=== PATIENT | female | born 1980 | race Caucasian/White ===

== ENCOUNTER 2020-09-15 00:35 | Emergency (ER) | payer MEDICAID, SELFPAY ==
[2020-09-15 00:45] VITALS: PULSE 100; RESP 20; O2SAT 100
[2020-09-15 00:47] VITALS: PULSE 100; RESP 24; O2SAT 99; BMI 39.2
[2020-09-15 01:00] VITALS: PULSE 107; RESP 20; O2SAT 100
--- NOTE | 2020-09-15 01:00 | PC.NURSE ---
PER EMS PT RECEIVED 5MG IM HALDOL MICA WASHER GLUER
[2020-09-15 01:15] VITALS: PULSE 110; RESP 24; O2SAT 97
--- NOTE | 2020-09-15 01:22 | ED.OVERDOSE ---
HPI - Overdose General Chief Complaint: ETOH/Substance Use Stated Complaint: Crisis Time Seen by Provider: 09/15/20 01:21 Source: EMS Mode of arrival: EMS History of Present Illness HPI Narrative: 40-year-old female was brought in by EMS as well as please department in 4 point restraints after patient took 500 mg of edibles. Related Data Allergies Allergy/AdvReac Type Severity Reaction Status Date / Time Unable to Assess Allergy Verified 09/15/20 00:47 Review of Systems Review of Systems: Pertinent positives and negatives as stated in HPI 10 point review systems is otherwise negative. PMFSH Past Medical History Source: nursing notes reviewed Social History Social History Advance Directives: No Advance Directives Information Provided: No Patient : No (UNKNOWN) Physical Exam Vital Signs: Vital Signs: Last Vital Signs Pulse 97 09/15/20 01:45 Resp 18 09/15/20 01:45 Pulse Ox 99 09/15/20 01:45 Body Mass Index 39.2 VITAL SIGNS: Reviewed. GENERAL: Well developed, well nourished, in no acute distress. HEAD: Normocephalic/atraumatic EYES: PERRLA, EOMI EARS: Ext canals without abnormality OROPHARYNX: no oral lesions noted, posterior pharynx clear NECK: Supple, no adenopathy LUNGS: Normal breath sounds. No adventitious sounds or accessory muscle use. SpO2<99> CARDIOVASCULAR: Regular rate and rhythm without noted murmurs ABDOMEN: Soft, non-tender, non-distended with bowel sounds. SKIN: Inspection of the skin reveals no rashes NEUROLOGIC: Alert and oriented x 3. Strength and sensation to light touch were grossly intact x 4. Course Course Course Narrative: 40-year-old female with history and clinical presentation consistent with overdose on edibles to associated altered mental status secondary to this. Patient required 4 point restraints and on 1 hour [id number]) has had significant improvement in mentation and ability to remove the restraints. Reevaluation(s) Reevaluation #1: Patient placed in physician observation because the patient needed more time to become sober. At the time observation was started the patient's vital signs were stable, patient is alert and oriented, neuro: Nonfocal, CV RRR, lungs clear Time: 02:42 Reevaluation #2: Physician observation ended. Patient will be discharged home in stable condition. NAD, lungs clear, CV RRR, abdominal nontender, neuro intact. Time: 05:53 MDM - Overdose Lab Data Labs: Lab Results 09/15/20 Range/Units 02:52 Urine Opiates Screen Not Detected (Not Detect) Ur Barbiturates Screen Not Detected (Not Detect) Ur Phencyclidine Scrn Not Detected (Not Detect) Ur Amphetamines Screen Not Detected (Not Detect) U Benzodiazepines Scrn Not Detected (Not Detect) Urine Cocaine Screen Not Detected (Not Detect) U Marijuana (THC) Screen POSITIVE H (Not Detect) Discharge Plan Discharge Clinical Impression: Overdose Patient Disposition: Home, Self-Care Instructions: Adult Overdose (ED) Additional Instructions: Return to the ER for acute worsening of your symptoms. Please follow-up with your primary care provider the next 2-3 days for re-evaluation. Referrals: Lisa Awad [Emergency Nurse] - 2 days
[2020-09-15 01:30] VITALS: PULSE 100; RESP 20; O2SAT 99
[2020-09-15 01:45] VITALS: PULSE 97; RESP 18; O2SAT 99
[2020-09-15 03:12] LABS: Amphetamine Screen Urine Not Detected (Not Detect); Barbiturates, Urine Not Detected (Not Detect); Benzodiazepines Screen Urine Not Detected (Not Detect); Cannabinoid Screen Urine POSITIVE (Not Detect); Cocaine Screen Urine Not Detected (Not Detect); Opiate Screen Urine Not Detected (Not Detect); Phencyclidine Screen Urine Not Detected (Not Detect)
== END 2020-09-15 06:43 | disposition home or self-care (01) ==
LOC: HO.ED 03:34
PROVIDERS: Emergency Provider Student in an Organized Health Care Education/Training Program
DX: T40.7X1A Poisoning by cannabis (derivatives), accidental (unintentional), initial encounter (principal); R41.82 Altered mental status, unspecified; Y92.9 Unspecified place or not applicable
CPT/HCPCS: 80307; 99283; 99285

== ENCOUNTER 2021-11-27 15:44 | Inpatient (IN) | payer OTHER, SELFPAY ==
[2021-11-27 16:05] VITALS: BP 146/84; PULSE 82; RESP 16; TEMP 36.6; O2SAT 99
--- NOTE | 2021-11-27 17:53 | PC.NURSE ---
Pt was admitted to M3 from [facility] ED @1385. Signed CV. Pt?s intake reports pt exhibited manic behavior at sister?s house where she tore her sister?s house apart looking for ?items of the rainbow to give to her friends.? During assessment, pt was A&O, INAD, pleasant and cooperative, using humor, forward thinking and hopeful, tangential but easily redirectable. Pt reports recent addition of sertraline to medication regimen and she associates that with her decompensation.? ALLERGIES: Penicillin allergy, rash and throat swelling reported; environmental allergies.? Chappell No. COVID: Negative. UTOX: +THC per [id number]. Mood: Pleasant; affect congruent to context. Insight appears good. Judgment good. Substance use: Regular marijuana use. ETOH 1-2 x weekly. MedHx: Wears glasses, on person; hypertension; hypercholesterolemia; cough when smoking MJ; legs hurt when walking; knees hurt from weight. Elevated AST, ALT, TSH, albumin; low RBC, Hgb, Hct. PsycheHx: Unspecified Bipolar and related disorder. Manic episode.? VS recorded at admission: 97.8, 82, 16, 146/84, 99%. Pt?s goal for admission is stabilization on medication. Feels sertraline was the wrong medication for her.
[2021-11-27] MEDS: OLANZapine ODT 10 MG TAB.RAPDIS TRANSLINGU (21:20)
[2021-11-27] MEDS: Ibuprofen 400 MG TABLET PO (21:20)
[2021-11-27] MEDS: Melatonin 3 MG TABLET 6 MG PO (21:51)
[2021-11-28] MEDS: Levothyroxine Sodium 75 MCG TABLET PO (08:49)
[2021-11-28 09:00] VITALS: BP 136/100; PULSE 79; RESP 16; TEMP 36.6; O2SAT 100
[2021-11-28 09:01] LABS: Estimated Average Glucose 94 mg/dL; Hemoglobin A1C 92.7504 umol/L; Hemoglobin A1c % 4.9 %
[2021-11-28 09:43] LABS: Alanine Aminotransferase 45 U/L (0-31); Alkaline Phosphatase 51 U/L (39-117); Anion Gap 16 (12-20); Aspartate Amino Transferase 72 U/L (5-31); Bilirubin Direct 0.2 mg/dL (0.0-0.5); Bilirubin Total 0.2 mg/dL (0.0-1.0); Blood Urea Nitrogen 11 mg/dL (9-16); Calcium 9.1 mg/dL (8.4-10.2); Carbon Dioxide 23 mmol/L (22-29); Chloride 104 mmol/L (96-108); Cholesterol 102 mg/dL; Estimated Glomerular Filt Rate > 60; Glucose Fasting 80 mg/dL (60-99); HDL Cholesterol 32 mg/dL; LDL Cholesterol Calculated 61 mg/dl; Potassium 4.4 mmol/L (3.3-5.1); Sodium 139 mmol/L (135-145); Total Protein 6.4 g/dL (6.5-8.0); Triglycerides 47 mg/dL
[2021-11-28 10:10] LABS: Folate 17.7 ng/mL (> or = 4.0); Vitamin B12 991 pg/mL (200-900)
--- NOTE | 2021-11-28 11:35 | P.HPPS_ITS ---
HPI Date of Service: 11/28/21 Chief Complaint: lacie HPI Narrative: pt's partner of 20 years called EMS after being called by her to bring her contacts to her sister's apartment and finding her there having caused a large mess at the apartment and making non-sensical, bizarre, disorganized statements. EMS brought pt to [facility] ED for evaluation. multiple staff there as well as crisis glaze mixer found pt to be tangential and disorganized, with pressured speech. pt denied any recent psychosocial stressors in interview with crisis, but she did report not having slept for three nights straight leading up to the presentation. she expressed concern that a recent medication change had something to do with her presentation (RN at [facility] identified the med as sertraline). on interview with MD on psych unit, pt presents with an essentially normal MSE. she states she slept well the past two nights and is feeling much better. discusses her feeling the sertraline she started in the first or second week of october must be responsible for recent events. sister with bipolar disorder. no h/o lacie until august,, after her father passed. Graves' Dz with hypothyroidism (states she has been taking synthroid the past couple of months and her TSH was over 100 before she restarted synthroid). smokes cannabis daily for the past 2-3 years, until 4-5 days ago. drinks a couple drinks per week. c/o winter depression, interested in anti-depressant. agrees to trial of wellbutrin. R/B discussed, including Sz, agitation, insomnia, anxiety. pt agrees to continue with other meds for now, including olanzapine to ensure sleep. no other requests or complaints. Past Psychiatric History: h/o one prior psych hosp, [facility], august of 2020. th is was shortly after the loss of her father and pt exhibited Sx similar to the present, of lacie. h/o outpt therapy. no h/o SA, SIB. gets meds from PCP currently. Medical Evaluation Reviewed: Yes [facility] Narrative: Graves' Disease with Hypothyroidism Family History: sister - bipolar disorder, per pt report Social History: born [place], [place], but raised mostly in [place] with intact bio family. both parents , father August,, which precipitated pt's first manic episode. lives with her boyfriend of over 20 yrs. Substance History: cannabis daily alcohol 2 drinks per week denies other Trauma History: witness to verbal altercations between her parents. Diagnostics Vital Signs (24Hr): Vital Signs - 24 hr 11/27/21 16:05 Temperature 97.8 F Pulse Rate 82 Respiratory Rate 16 Blood Pressure 146/84 H Pulse Oximetry 99 Oxygen Delivery Method Room Air Labs Results: 11/28/21 08:17 Labs: Laboratory Results - last 48 hr 11/28/21 11/28/21 11/28/21 08:17 08:17 08:17 Sodium 139 Potassium 4.4 Chloride 104 Carbon Dioxide 23 Anion Gap 16 BUN 11 Creatinine 0.72 Estim Creat Clear Calc TNP Estimated GFR > 60 Fasting Glucose 80 Estimat Average Glucose 94 Hemoglobin A1c % 4.9 Calcium 9.1 Total Bilirubin 0.2 Direct Bilirubin 0.2 AST 72 H ALT 45 H Alkaline Phosphatase 51 Total Protein 6.4 L Albumin 4.0 Triglycerides 47 Cholesterol 102 LDL Cholesterol, Calc 61 HDL Cholesterol 32 Vitamin B12 991 H Folate 17.7 Meds/Allergies Allergies Allergies Allergy/AdvReac Type Severity Reaction Status Date / Time Penicillins Allergy Severe Rash Verified 11/27/21 17:36 Mental Status Exam Mental Status Exam Narrative: calm, cooperative. no PMA/PMR. normal eye contact. speech incr in rate, amount. nml loudness. decr latency. thoughts linear and logical. affect full range, flexible, normo-intense, non-labile. mood still good. denies SI/HI/AVH. Assessment & Plan Assessment & Plan (1) Brief psychotic disorder: Status: Acute Code(s): F23 - Brief psychotic disorder Plan olanzapine at HS to ensure good sleep, temporarily. wellbutrin for depression, which pt describes as the burden of her morbidity. Patient educated on: diagnosis and medication risk/benefits Reason for continued inpatient stay Substantial Risk for: inability to function and rapid decompensation
[2021-11-28] MEDS: buPROPion HCl XL 150 MG TAB.ER.24H PO (14:26)
[2021-11-28] MEDS: Magnesium Hydrox/Alum Hydrox 30 ML ORAL.SUSP PO (18:20)
[2021-11-28 20:30] VITALS: BP 172/81; PULSE 85; TEMP 36.7; O2SAT 99
[2021-11-28] MEDS: OLANZapine ODT 10 MG TAB.RAPDIS TRANSLINGU (20:58)
[2021-11-28] MEDS: Melatonin 3 MG TABLET 6 MG PO (21:02)
[2021-11-29 06:00] VITALS: BP 143/84; PULSE 75; RESP 18; TEMP 36.6; O2SAT 98
[2021-11-29] MEDS: buPROPion HCl XL 150 MG TAB.ER.24H PO (08:16)
[2021-11-29] MEDS: Levothyroxine Sodium 75 MCG TABLET PO (08:16)
--- NOTE | 2021-11-29 12:07 | HO.PM.IMCN ---
History of Present Illness Data of Consult Service Date: 11/29/21 Requesting physician: Stanislaw Merrill Primary Care Provider: TANVIR Whitman Reason for consult: medical history and physical 41-year-old female patient admitted to Adult psych facility due to brief psychotic disorder, at present patient answering questions appropriately she admits to be feeling better sleeping well, wanted her right forearm to be checked since had a cat scratch several days ago denies fever chills, no pain, patient denies symptoms of headache, no nausea no vomiting, no abdominal pain no diarrhea no other acute symptoms of pain. Review of Systems Review of Systems: General no headache no dizziness, no fever chills. CVS no chest pain, no palpitation. Respiratory no cough, no sob Gastrointestinal no nausea, no vomiting, no abdominal pain Yes all other systems are reviewed and are negative PMFSH Pertinent family history: Both parents are diseased father had type 1 diabetes mellitus and had premature coronary artery disease status post quadruple bypass, mother due to trauma and had subdural hemorrhage, sister has bipolar disorder Social History Household Members: Significant Other Housing: Apartment Do you presently have visiting nurse or other home services: No Patient Tobacco Use Status: Never used Tobacco Use of substances other than those prescribed or required for medical reasons: Yes Substance Use Type: Marijuana Substance Use Frequency: Daily Last Used Substance: Days (ago) Currently Displaying Signs/Symptoms of Drug Intoxication Withdrawal: No Other Past Substance Use Problem:: Overdoses on mushrooms last summer. Any prior treatment program specific to substance use: No Have you been hit, kicked, punched, or otherwise hurt by someone within the past year? If so, by whom?: No ( Not without asking ) Do you feel safe in your current relationship?: Yes Is there a partner from a previous relationship who is making you feel unsafe now?: Yes ( My ex girlfriend sometimes, but that's it. ) Are you made to feel afraid or neglected: No ( Usually just myself. Social anxieties. ) Spiritual Healthcare Practices: Yoga. Advance Directives: Yes (Boyfriend.) Advance Directives Information Provided: No Do you have thoughts of harming others: None Do you have a plan to hurt others: No Plan Recently lost weight without trying: No Eating poorly because of decreased appetite: No Nutrition Risks: No Nutritional Risk Patient : No (Currently menstruating) : No Poor oral hygiene: No service: No Sexual orientation: Straight/Heterosexual Meds Allergies Allergy/AdvReac Type Severity Reaction Status Date / Time Penicillins Allergy Severe Rash Verified 11/27/21 17:36 Active Medications: Current Medications Acetaminophen (Acetaminophen 325 Mg Tablet) 650 mg PO Q6H PRN PRN Reason: Headache/Pain Mild Scale (1-3) Al Hydroxide/Mg Hydroxide (Magnesium Hydrox/Alum Hydrox 30 Ml Oral.Susp) 30 ml PO Q6H PRN PRN Reason: Heartburn/Nausea Last Admin: 11/28/21 18:20 Dose: 30 ml Bupropion HCl (Bupropion Hcl Xl 150 Mg Tab.Er.24h) 150 mg PO DAILY LOUIE Last Admin: 11/29/21 08:16 Dose: 150 mg Hydroxyzine HCl (Hydroxyzine Hcl 25 Mg Tablet) 25 mg PO Q6H PRN PRN Reason: Anxiety Ibuprofen (Ibuprofen 400 Mg Tablet) 400 mg PO Q6H PRN PRN Reason: Pain, Mild (Pain Scale 1-3) Last Admin: 11/27/21 21:20 Dose: 400 mg Levothyroxine Sodium (Levothyroxine Sodium 100 Mcg Tablet) 100 mcg PO DAILY@0600 LOUIE Lorazepam (Lorazepam 1 Mg Tablet) 2 mg PO Q4H PRN PRN Reason: agitation Magnesium Hydroxide (Milk Of Magnesia 30 Ml Oral.Susp) 30 ml PO DAILY PRN PRN Reason: Constipation Melatonin (Melatonin 3 Mg Tablet) 6 mg PO BEDTIME PRN PRN Reason: Insomnia Last Admin: 11/28/21 21:02 Dose: 6 mg Nicotine Polacrilex (Nicotine Polacrilex 2 Mg Gum) 4 mg BUCCAL Q2H PRN PRN Reason: Nicotine Cravings Olanzapine (Olanzapine 5 Mg Tablet) 5 mg PO BEDTIME LOUIE Olanzapine (Olanzapine 5 Mg Tablet) 5 mg PO Q4H PRN PRN Reason: agitation/insomnia Trazodone HCl (Trazodone Hcl 50 Mg Tablet) 50 mg PO BEDTIME PRN PRN Reason: Insomnia Physical Exam Vital Signs and Narrative: Vital Signs: Last Vital Signs Temp 97.8 F 11/29/21 06:00 Pulse 75 11/29/21 06:00 Resp 18 11/29/21 06:00 BP 143/84 H 11/29/21 06:00 Pulse Ox 98 11/29/21 06:00 O2 Del Method 11/29/21 06:00 Const: Other: General awake alert x3, no acute distress. oral mucosa moist Neck supple, no mass CVS regular rate rhythm, Respiratory lungs clear to auscultation, no respiratory distress, no wheeze, no rhonchi. Gastrointestinal abdomen soft, nontender, bowel sounds audible, no guarding , no rigidity. Extremities no edema. Neuro nonfocal , no tremors Skin no rash Results Labs CBC and Chem 7: 11/28/21 08:17 Assessment and Plan (1) Brief psychotic disorder: Status: Acute (2) Hypothyroidism: Status: Acute Plan 41-year-old female patient admitted to psych unit due to psychotic disorder, with lack of sleep hypothyroidism continue Synthroid, recommend to follow TSH in 6 weeks due to dosage change Elevated LFTs, no prior LFTs available, patient denies abdominal pain nausea vomiting, drinks alcohol socially, follow LFTs as outpatient Psychosis treatment as per Psychiatry thank you for allowing us to participate in the care of this patient will sign off call us with any questions.
--- NOTE | 2021-11-29 13:55 | HO.PSYCHPN ---
Subjective Subjective Date of Service: 11/29/21 Reason For Visit: lacie Interim History: calm, cooperative, friendly. reports she slept well last night. agreeable to increase wellbutrin to 300 on thursday and to decrease olanzapine to 5 mg as of tonight. will also have PRN available. per staff, 3-day submitted. pleasant. sad due to problems with sister. eating and sleeping well. attending groups. no SI/HI/AVH. boyfriend visited. Mental Status Exam Mental Status Exam Narrative: calm, cooperative. no PMA/PMR. normal eye contact. speech incr in rate, amount. nml loudness. decr latency. thoughts linear and logical. affect full range, flexible, normo-intense, non-labile. mood pretty calm. denies SI/HI/AVH. Diagnostics Vital Signs (24Hr): Vital Signs - 24 hr 11/28/21 20:30 11/29/21 06:00 Temperature 98.1 F 97.8 F Pulse Rate 85 75 Respiratory Rate 18 Blood Pressure 172/81 H 143/84 H Pulse Oximetry 99 98 Oxygen Delivery Method Room Air Room Air Labs Results: 11/28/21 08:17 Labs: Laboratory Results - last 48 hr 11/28/21 11/28/21 11/28/21 08:17 08:17 08:17 Sodium 139 Potassium 4.4 Chloride 104 Carbon Dioxide 23 Anion Gap 16 BUN 11 Creatinine 0.72 Estim Creat Clear Calc TNP Estimated GFR > 60 Fasting Glucose 80 Estimat Average Glucose 94 Hemoglobin A1c % 4.9 Calcium 9.1 Total Bilirubin 0.2 Direct Bilirubin 0.2 AST 72 H ALT 45 H Alkaline Phosphatase 51 Total Protein 6.4 L Albumin 4.0 Triglycerides 47 Cholesterol 102 LDL Cholesterol, Calc 61 HDL Cholesterol 32 Vitamin B12 991 H Folate 17.7 Medications Medications Current Medications Acetaminophen (Acetaminophen 325 Mg Tablet) 650 mg PO Q6H PRN PRN Reason: Headache/Pain Mild Scale (1-3) Al Hydroxide/Mg Hydroxide (Magnesium Hydrox/Alum Hydrox 30 Ml Oral.Susp) 30 ml PO Q6H PRN PRN Reason: Heartburn/Nausea Last Admin: 11/28/21 18:20 Dose: 30 ml Bupropion HCl (Bupropion Hcl Xl 150 Mg Tab.Er.24h) 150 mg PO DAILY LOUIE Last Admin: 11/29/21 08:16 Dose: 150 mg Hydroxyzine HCl (Hydroxyzine Hcl 25 Mg Tablet) 25 mg PO Q6H PRN PRN Reason: Anxiety Ibuprofen (Ibuprofen 400 Mg Tablet) 400 mg PO Q6H PRN PRN Reason: Pain, Mild (Pain Scale 1-3) Last Admin: 11/27/21 21:20 Dose: 400 mg Levothyroxine Sodium (Levothyroxine Sodium 100 Mcg Tablet) 100 mcg PO DAILY@0600 LOUIE Lorazepam (Lorazepam 1 Mg Tablet) 2 mg PO Q4H PRN PRN Reason: agitation Magnesium Hydroxide (Milk Of Magnesia 30 Ml Oral.Susp) 30 ml PO DAILY PRN PRN Reason: Constipation Melatonin (Melatonin 3 Mg Tablet) 6 mg PO BEDTIME PRN PRN Reason: Insomnia Last Admin: 11/28/21 21:02 Dose: 6 mg Nicotine Polacrilex (Nicotine Polacrilex 2 Mg Gum) 4 mg BUCCAL Q2H PRN PRN Reason: Nicotine Cravings Olanzapine (Olanzapine 5 Mg Tablet) 5 mg PO BEDTIME LOUIE Olanzapine (Olanzapine 5 Mg Tablet) 5 mg PO Q4H PRN PRN Reason: agitation/insomnia Trazodone HCl (Trazodone Hcl 50 Mg Tablet) 50 mg PO BEDTIME PRN PRN Reason: Insomnia Allergies Allergies Allergy/AdvReac Type Severity Reaction Status Date / Time Penicillins Allergy Severe Rash Verified 11/27/21 17:36 Assessment & Plan Assessment & Plan (1) Brief psychotic disorder: Status: Acute Code(s): F23 - Brief psychotic disorder (2) Hypothyroidism: Status: Acute Code(s): E03.9 - Hypothyroidism, unspecified Plan 11/28: olanzapine 10 at HS to ensure good sleep, temporarily. wellbutrin 150 for depression, which pt describes as the burden of her morbidity. 11/29: mood continues well. calm and cooperative. decrease olanzapine at HS. wellbutrin 150 thursday, then increase to 300 thursday. planning for discharge thursday upon maturation of 3-day notice. I spent ___25___ minutes with the patient and/or on the patient floor today, greater than?50% of which was spent counseling/coordinating care. Reason for contiued inpatient stay Substantial Risk for: inability to function and rapid decompensation
[2021-11-29 20:15] VITALS: BP 134/86; PULSE 77; RESP 16; TEMP 36.7; O2SAT 99
[2021-11-29] MEDS: OLANZapine 5 MG TABLET PO (20:23)
[2021-11-29] MEDS: traZODone HCL 50 MG TABLET PO (20:23)
[2021-11-29] MEDS: Melatonin 3 MG TABLET 6 MG PO (20:23)
[2021-11-30] MEDS: hydrOXYzine HCL 25 MG TABLET PO (01:08)
[2021-11-30] MEDS: traZODone HCL 50 MG TABLET PO ×2 (01:08→21:31)
[2021-11-30 06:00] VITALS: BP 170/98; PULSE 87; RESP 16; TEMP 36.6; O2SAT 99
[2021-11-30] MEDS: buPROPion HCl XL 150 MG TAB.ER.24H PO (09:18)
[2021-11-30] MEDS: Levothyroxine Sodium 100 MCG TABLET PO (09:18)
--- NOTE | 2021-11-30 12:10 | HO.PSYCHPN ---
Subjective Subjective Date of Service: 11/30/21 Reason For Visit: lacie Subjective Notes: Conditional Voluntary Interim History: the nursing staff reported the patient has been fully compliant with treatment. If she reported that since we change Zoloft to Wellbutrin she is feeling much better. On interview the patient stated will be treat is helping her no side effects no insomnia. Her mood is more stable. Mental Status Exam Mental Status Exam Patient Appearance: Well Grooomed Patient Orientation: Person and Situation Level of Consciousness: Awake Patient Behavior: Cooperative Mood Description: Constricted Affect Description: Calm Patient Cognition Impaired: No Ability to Follow Directions: Good Speech Pattern: Clear Hallucinations: None Delusions: Not Present Thought Content: positive for Circumstantial Judgement: Fair Diagnostics Vital Signs (24Hr): Vital Signs - 24 hr 11/29/21 20:15 11/30/21 06:00 Temperature 98.0 F 97.8 F Pulse Rate 77 87 Respiratory Rate 16 16 Blood Pressure 134/86 170/98 H Pulse Oximetry 99 99 Oxygen Delivery Method Room Air Room Air Labs Results: 11/28/21 08:17 Medications Medications Current Medications Acetaminophen (Acetaminophen 325 Mg Tablet) 650 mg PO Q6H PRN PRN Reason: Headache/Pain Mild Scale (1-3) Al Hydroxide/Mg Hydroxide (Magnesium Hydrox/Alum Hydrox 30 Ml Oral.Susp) 30 ml PO Q6H PRN PRN Reason: Heartburn/Nausea Last Admin: 11/28/21 18:20 Dose: 30 ml Bupropion HCl (Bupropion Hcl Xl 300 Mg Tab.Er.24h) 300 mg PO DAILY [facility] Hydroxyzine HCl (Hydroxyzine Hcl 25 Mg Tablet) 25 mg PO Q6H PRN PRN Reason: Anxiety Last Admin: 11/30/21 01:08 Dose: 25 mg Ibuprofen (Ibuprofen 400 Mg Tablet) 400 mg PO Q6H PRN PRN Reason: Pain, Mild (Pain Scale 1-3) Last Admin: 11/27/21 21:20 Dose: 400 mg Levothyroxine Sodium (Levothyroxine Sodium 100 Mcg Tablet) 100 mcg PO DAILY@0600 LOUIE Last Admin: 11/30/21 09:18 Dose: 100 mcg Lorazepam (Lorazepam 1 Mg Tablet) 2 mg PO Q4H PRN PRN Reason: agitation Magnesium Hydroxide (Milk Of Magnesia 30 Ml Oral.Susp) 30 ml PO DAILY PRN PRN Reason: Constipation Melatonin (Melatonin 3 Mg Tablet) 6 mg PO BEDTIME PRN PRN Reason: Insomnia Last Admin: 11/29/21 20:23 Dose: 6 mg Nicotine Polacrilex (Nicotine Polacrilex 2 Mg Gum) 4 mg BUCCAL Q2H PRN PRN Reason: Nicotine Cravings Olanzapine (Olanzapine 5 Mg Tablet) 5 mg PO BEDTIME LOUIE Last Admin: 11/29/21 20:23 Dose: 5 mg Olanzapine (Olanzapine 5 Mg Tablet) 5 mg PO Q4H PRN PRN Reason: agitation/insomnia Trazodone HCl (Trazodone Hcl 50 Mg Tablet) 50 mg PO BEDTIME PRN PRN Reason: Insomnia Last Admin: 11/30/21 01:08 Dose: 50 mg Allergies Allergies Allergy/AdvReac Type Severity Reaction Status Date / Time Penicillins Allergy Severe Rash Verified 11/27/21 17:36 Assessment & Plan Assessment & Plan (1) Brief psychotic disorder: Status: Acute Code(s): F23 - Brief psychotic disorder (2) Hypothyroidism: Status: Acute Code(s): E03.9 - Hypothyroidism, unspecified Plan 11/28: olanzapine 10 at HS to ensure good sleep, temporarily. wellbutrin 150 for depression, which pt describes as the burden of her morbidity. 11/29: mood continues well. calm and cooperative. decrease olanzapine at HS. wellbutrin 150 thursday, then increase to 300 thursday. planning for discharge thursday upon maturation of 3-day notice. I spent __20____ minutes with the patient and/or on the patient floor today, greater than?50% of which was spent counseling/coordinating care. Reason for contiued inpatient stay Substantial Risk for: inability to function, rapid decompensation and med/psych decompensation
[2021-11-30 21:30] VITALS: BP 157/90; PULSE 80; RESP 18; TEMP 36.6; O2SAT 97
[2021-11-30] MEDS: Melatonin 3 MG TABLET 6 MG PO (21:31)
[2021-11-30] MEDS: OLANZapine 5 MG TABLET PO (21:31)
[2021-12-01] MEDS: Magnesium Hydrox/Alum Hydrox 30 ML ORAL.SUSP PO (00:46)
[2021-12-01 09:10] VITALS: BP 128/89; PULSE 78; RESP 16; TEMP 36.6; O2SAT 100
[2021-12-01] MEDS: Levothyroxine Sodium 100 MCG TABLET PO (09:13)
[2021-12-01] MEDS: buPROPion HCl XL 300 MG TAB.ER.24H PO (09:13)
--- NOTE | 2021-12-01 12:13 | HO.PSYCHPN ---
Subjective Subjective Date of Service: 12/01/21 Reason For Visit: lacie Subjective Notes: Conditional Voluntary Interim History: The nursing staff reported the patient has been doing well no evidence of lacie, she slept all night. On interview the patient stated that she is doing very good, her needs are med, she will get a visitor at noon and she is happy. No side effects with current medications Mental Status Exam Mental Status Exam Patient Appearance: Well Grooomed Patient Orientation: Person and Situation Level of Consciousness: Awake Patient Behavior: Cooperative Mood Description: Constricted Affect Description: Calm Patient Cognition Impaired: No Ability to Follow Directions: Good Speech Pattern: Clear Hallucinations: None Delusions: Not Present Thought Process: Linear Thought Content: positive for Intact Judgement: Fair Diagnostics Vital Signs (24Hr): Vital Signs - 24 hr 11/30/21 21:30 12/01/21 09:10 Temperature 97.9 F 97.8 F Pulse Rate 80 78 Respiratory Rate 18 16 Blood Pressure 157/90 H 128/89 Pulse Oximetry 97 100 Oxygen Delivery Method Room Air Room Air Labs Results: 11/28/21 08:17 Medications Medications Current Medications Acetaminophen (Acetaminophen 325 Mg Tablet) 650 mg PO Q6H PRN PRN Reason: Headache/Pain Mild Scale (1-3) Al Hydroxide/Mg Hydroxide (Magnesium Hydrox/Alum Hydrox 30 Ml Oral.Susp) 30 ml PO Q6H PRN PRN Reason: Heartburn/Nausea Last Admin: 12/01/21 00:46 Dose: 30 ml Bupropion HCl (Bupropion Hcl Xl 300 Mg Tab.Er.24h) 300 mg PO DAILY [facility] Last Admin: 12/01/21 09:13 Dose: 300 mg Hydroxyzine HCl (Hydroxyzine Hcl 25 Mg Tablet) 25 mg PO Q6H PRN PRN Reason: Anxiety Last Admin: 11/30/21 01:08 Dose: 25 mg Ibuprofen (Ibuprofen 400 Mg Tablet) 400 mg PO Q6H PRN PRN Reason: Pain, Mild (Pain Scale 1-3) Last Admin: 11/27/21 21:20 Dose: 400 mg Levothyroxine Sodium (Levothyroxine Sodium 100 Mcg Tablet) 100 mcg PO DAILY@0600 [facility] Last Admin: 12/01/21 09:13 Dose: 100 mcg Lorazepam (Lorazepam 1 Mg Tablet) 2 mg PO Q4H PRN PRN Reason: agitation Magnesium Hydroxide (Milk Of Magnesia 30 Ml Oral.Susp) 30 ml PO DAILY PRN PRN Reason: Constipation Melatonin (Melatonin 3 Mg Tablet) 6 mg PO BEDTIME PRN PRN Reason: Insomnia Last Admin: 11/30/21 21:31 Dose: 6 mg Nicotine Polacrilex (Nicotine Polacrilex 2 Mg Gum) 4 mg BUCCAL Q2H PRN PRN Reason: Nicotine Cravings Olanzapine (Olanzapine 5 Mg Tablet) 5 mg PO BEDTIME LOUIE Last Admin: 11/30/21 21:31 Dose: 5 mg Olanzapine (Olanzapine 5 Mg Tablet) 5 mg PO Q4H PRN PRN Reason: agitation/insomnia Trazodone HCl (Trazodone Hcl 50 Mg Tablet) 50 mg PO BEDTIME PRN PRN Reason: Insomnia Last Admin: 11/30/21 21:31 Dose: 50 mg Allergies Allergies Allergy/AdvReac Type Severity Reaction Status Date / Time Penicillins Allergy Severe Rash Verified 11/27/21 17:36 Assessment & Plan Assessment & Plan (1) Brief psychotic disorder: Status: Acute Code(s): F23 - Brief psychotic disorder (2) Hypothyroidism: Status: Acute Code(s): E03.9 - Hypothyroidism, unspecified Plan 11/28: olanzapine 10 at HS to ensure good sleep, temporarily. wellbutrin 150 for depression, which pt describes as the burden of her morbidity. 11/29: mood continues well. calm and cooperative. decrease olanzapine at HS. wellbutrin 150 thursday, then increase to 300 thursday. planning for discharge thursday upon maturation of 3-day notice. I spent __20____ minutes with the patient and/or on the patient floor today, greater than?50% of which was spent counseling/coordinating care. Reason for contiued inpatient stay Substantial Risk for: inability to function, rapid decompensation and med/psych decompensation
[2021-12-01] MEDS: Ibuprofen 400 MG TABLET PO (17:26)
[2021-12-01 20:46] VITALS: BP 171/109; PULSE 88; RESP 18; TEMP 36.6; O2SAT 98
[2021-12-01] MEDS: traZODone HCL 50 MG TABLET PO (21:17)
[2021-12-01] MEDS: OLANZapine 5 MG TABLET PO (21:17)
[2021-12-01] MEDS: Melatonin 3 MG TABLET 6 MG PO (21:17)
[2021-12-02 08:35] VITALS: BP 158/86; PULSE 92; RESP 17; TEMP 36.4; O2SAT 99
[2021-12-02] MEDS: Levothyroxine Sodium 100 MCG TABLET PO (08:40)
[2021-12-02] MEDS: buPROPion HCl XL 300 MG TAB.ER.24H PO (08:40)
--- NOTE | 2021-12-02 14:49 | P.PNPSI_ITS ---
Subjective Subjective Date of Service: 12/02/21 Reason For Visit: lacie Interim History: calm, cooperative. was hoping for discharge today, when told tomorrow had some tears but got through it quickly. reports she has been sleeping very well on trazodone and zyprexa, agrees to decrease zyprexa to 2.5 mg tonight with plan to make it PRN only after discharge and to rely on trazodone more. aftercare arranged by KERRY mosher as described by her to pt during mtg. per staff, playing cards with select peers. getting fresh air. safe on unit but sad. denies SI/HI/AVH. pleasant, cooperative. visible, social, pleasant eves. discharge tomorrow. Mental Status Exam Mental Status Exam Narrative: calm, cooperative. no PMA/PMR. normal eye contact. speech incr in rate, nml amount, loudness. decr latency. thoughts linear and logical. affect full range, flexible, normo-intense, min-labile (some tearfulness). no SI/HI/AVH expressed. Diagnostics Vital Signs (24Hr): Vital Signs - 24 hr 12/01/21 20:46 12/02/21 08:35 Temperature 97.8 F 97.6 F Pulse Rate 88 92 Respiratory Rate 18 17 Blood Pressure 171/109 H 158/86 H Pulse Oximetry 98 99 Oxygen Delivery Method Room Air Room Air Labs Results: 11/28/21 08:17 Medications Medications Current Medications Acetaminophen (Acetaminophen 325 Mg Tablet) 650 mg PO Q6H PRN PRN Reason: Headache/Pain Mild Scale (1-3) Al Hydroxide/Mg Hydroxide (Magnesium Hydrox/Alum Hydrox 30 Ml Oral.Susp) 30 ml PO Q6H PRN PRN Reason: Heartburn/Nausea Last Admin: 12/01/21 00:46 Dose: 30 ml Bupropion HCl (Bupropion Hcl Xl 300 Mg Tab.Er.24h) 300 mg PO DAILY LOUIE Last Admin: 12/02/21 08:40 Dose: 300 mg Hydroxyzine HCl (Hydroxyzine Hcl 25 Mg Tablet) 25 mg PO Q6H PRN PRN Reason: Anxiety Last Admin: 11/30/21 01:08 Dose: 25 mg Ibuprofen (Ibuprofen 400 Mg Tablet) 400 mg PO Q6H PRN PRN Reason: Pain, Mild (Pain Scale 1-3) Last Admin: 12/01/21 17:26 Dose: 400 mg Levothyroxine Sodium (Levothyroxine Sodium 100 Mcg Tablet) 100 mcg PO DAILY@0600 LOUIE Last Admin: 12/02/21 08:40 Dose: 100 mcg Lorazepam (Lorazepam 1 Mg Tablet) 2 mg PO Q4H PRN PRN Reason: agitation Magnesium Hydroxide (Milk Of Magnesia 30 Ml Oral.Susp) 30 ml PO DAILY PRN PRN Reason: Constipation Melatonin (Melatonin 3 Mg Tablet) 6 mg PO BEDTIME PRN PRN Reason: Insomnia Last Admin: 12/01/21 21:17 Dose: 6 mg Nicotine Polacrilex (Nicotine Polacrilex 2 Mg Gum) 4 mg BUCCAL Q2H PRN PRN Reason: Nicotine Cravings Olanzapine (Olanzapine 5 Mg Tablet) 5 mg PO Q4H PRN PRN Reason: agitation/insomnia Olanzapine (Olanzapine 2.5 Mg Tablet) 2.5 mg PO BEDTIME LOUIE Trazodone HCl (Trazodone Hcl 50 Mg Tablet) 50 mg PO BEDTIME LOUIE Allergies Allergies Allergy/AdvReac Type Severity Reaction Status Date / Time Penicillins Allergy Severe Rash Verified 11/27/21 17:36 Assessment & Plan Assessment & Plan (1) Brief psychotic disorder: Status: Acute Code(s): F23 - Brief psychotic disorder (2) Hypothyroidism: Status: Acute Code(s): E03.9 - Hypothyroidism, unspecified Plan 11/28: olanzapine 10 at HS to ensure good sleep, temporarily. wellbutrin 150 for depression, which pt describes as the burden of her morbid ity. 11/29: mood continues well. calm and cooperative. decrease olanzapine at HS. wellbutrin 150 thursday, then increase to 300 thursday. planning for discharge thursday upon maturation of 3-day notice. 12/02: decrease HS zyprexa to 2.5 mg, change to PRN as of tomorrow. schedule trazodone at HS. discharge tomorrow, at maturation of 3-day notice. I spent __25____ minutes with the patient and/or on the patient floor today, greater than?50% of which was spent counseling/coordinating care. Reason for contiued inpatient stay Substantial Risk for: inability to function and rapid decompensation
[2021-12-02] MEDS: Magnesium Hydrox/Alum Hydrox 30 ML ORAL.SUSP PO (17:35)
[2021-12-02 19:40] VITALS: BP 143/82; PULSE 87; RESP 16; TEMP 36.6; O2SAT 98
[2021-12-02] MEDS: OLANZapine 2.5 MG TABLET PO (20:05)
[2021-12-02] MEDS: traZODone HCL 50 MG TABLET PO (21:56)
[2021-12-03] MEDS: Levothyroxine Sodium 100 MCG TABLET PO (06:56)
[2021-12-03 08:14] VITALS: BP 135/69; PULSE 95; RESP 16; TEMP 36.3; O2SAT 100
[2021-12-03] MEDS: buPROPion HCl XL 300 MG TAB.ER.24H PO (08:16)
--- NOTE | 2021-12-03 09:56 | PC.NURSE ---
Pt would like to receive flu vaccine prior to being discharged, aware
--- NOTE | 2021-12-03 10:29 | P.DS_ITS ---
DS: Providers Provider Date of Service: 12/03/21 Date of admission: 11/27/21 15:44 Primary care physician: Vicki Galan APRN Consults: 11/27/21 19:37 Consult to Hospitalist Routine Consulting Provider: Hospitalist Reason For Exam: OSH admission DS: Diagnosis Discharge Diagnosis (1) Brief psychotic disorder: Status: Acute (2) Hypothyroidism: Status: Acute DS: Medications Discharge Medications Home Medications: Previous Rx's Medication Instructions Recorded bupropion HCl 300 mg 24 hr tablet, 300 mg PO DAILY 30 days #30 tabs 12/03/21 extended release levothyroxine 100 mcg tablet 100 mcg PO DAILY@0600 #0 tabs 12/03/21 (Synthroid) melatonin 3 mg tablet 6 mg PO BEDTIME PRN Insomnia #0 12/03/21 tabs olanzapine 2.5 mg tablet 2.5 mg PO BEDTIME 30 days #30 tabs 12/03/21 trazodone 50 mg tablet 50 mg PO BEDTIME 30 days #30 tabs 12/03/21 Mental Status Exam Mental Status Exam Narrative: calm, cooperative. no PMA/PMR. normal eye contact. speech incr in rate, nml amount, loudness. decr latency. thoughts linear and logical. affect full range, flexible, normo-intense, non-labile. mood good. positive. no SI/HI/AVH. Data Data Completed and Pending Completed studies during hospitalization [Text1]: 11/28/21 11/28/21 11/28/21 08:17 08:17 08:17 Sodium 139 Potassium 4.4 Chloride 104 Carbon Dioxide 23 Anion Gap 16 BUN 11 Creatinine 0.72 Estim Creat Clear Calc TNP Estimated GFR > 60 Fasting Glucose 80 Estimat Average Glucose 94 Hemoglobin A1c % 4.9 Calcium 9.1 Total Bilirubin 0.2 Direct Bilirubin 0.2 AST 72 H ALT 45 H Alkaline Phosphatase 51 Total Protein 6.4 L Albumin 4.0 Triglycerides 47 Cholesterol 102 LDL Cholesterol, Calc 61 HDL Cholesterol 32 Vitamin B12 991 H Folate 17.7 DS: Summary Hospital Course Hospital Course: per 11/28 admission note: pt's partner of 20 years called EMS after being called by her to bring her contacts to her sister's apartment and finding her there having caused a large mess at the apartment and making non-sensical, bizarre, disorganized statements.? EMS brought pt to [facility] ED for evaluation.? multiple staff there as well as crisis melangeur operator found pt to be tangential and disorganized, with pressured speech.? pt denied any recent psychosocial stressors in interview with crisis, but she did report not having slept for three nights straight leading up to the presentation.? she expressed concern that a recent medication change had something to do with her presentation (RN at [facility] identified the med as sertraline). on interview with MD on psych unit, pt presents with an essentially normal MSE.? she states she slept well the past two nights and is feeling much better.? discusses her feeling the sertraline she started in the first or second week of october must be responsible for recent events.? sister with bipolar disorder.? no h/o lacie until august,, after her father passed.? Graves' Dz with hypothyroidism (states she has been taking synthroid the past couple of months and her TSH was over 100 before she restarted synthroid).? smokes cannabis daily for the past 2-3 years, until 4-5 days ago.? drinks a couple drinks per week.? c/o winter depression, interested in anti-depressant.? agrees to trial of wellbutrin.? R/B discussed, including Sz, agitation, insomnia, anxiety.? pt a grees to continue with other meds for now, including olanzapine to ensure sleep.? no other requests or complaints. Past Psychiatric History: h/o one prior psych hosp, [facility], august of 2020.? this was shortly after the loss of her father and pt exhibited Sx similar to the present, of lacie. h/o outpt therapy. no h/o SA, SIB. gets meds from PCP currently. Medical Evaluation Reviewed: Yes [facility] Narrative: Graves' Disease with Hypothyroidism Family History: sister - bipolar disorder, per pt report Social History: born [place], [place], but raised mostly in [place] and [place] with intact bio family.? both parents , father August,, which precipitated pt's first manic episode.? lives with her boyfriend of over 20 yrs. Substance History: cannabis daily alcohol 2 drinks per week denies other Trauma History: witness to verbal altercations between her parents. 11/29: calm, cooperative, friendly.? reports she slept well last night.? agreeable to increase wellbutrin to 300 on thursday and to decrease olanzapine to 5 mg as of tonight.? will also have PRN available.? per staff, 3-day submitted.? pleasant.? sad due to problems with sister.? eating and sleeping well.? attending groups.? no SI/HI/AVH.? boyfriend visited. 11/30: the nursing staff reported the patient has been fully compliant with treatment.? If she reported that since we change Zoloft to Wellbutrin she is feeling much better.? On interview the patient stated will be treat is helping her no side effects no insomnia.? Her mood is more stable. 12/01: The nursing staff reported the patient has been doing well no evidence of lacie, she slept all night.? On interview the patient stated that she is doing very good, her needs are med, she will get a visitor at noon and she is happy.? No side effects with current medications 12/02: calm, cooperative.? was hoping for discharge today, when told tomorrow had some tears but got through it quickly.? reports she has been sleeping very well on trazodone and zyprexa, agrees to decrease zyprexa to 2.5 mg tonight with plan to make it PRN only after discharge and to rely on trazodone more.? aftercare arranged by KERRY mosher as described by her to pt during mtg.? per staff, playing cards with select peers.? getting fresh air.? safe on unit but sad.? denies SI/HI/AVH.? pleasant, cooperative.? visible, social, pleasant eves.? discharge tomorrow. 12/03: stable, no change in presentation. meds reviewed, reconciled, prescribed. pt discharged to outpt care. Precis: 11/28: olanzapine 10 at HS to ensure good sleep, temporarily. wellbutrin 150 for depression, which pt describes as the burden of her morbidity. 11/29: mood continues well.? calm and cooperative.? decrease olanzapine at HS.? wellbutrin 150 thursday, then increase to 300 thursday.? planning for discharge thursday upon maturation of 3-day notice. 12/02: decrease HS zyprexa to 2.5 mg, change to PRN as of tomorrow.? schedule trazodone at HS.? discharge tomorrow, at maturation of 3-day notice. 12/03: discharged Status at Discharge Overall status at discharge: patient is back to baseline Time Spent with Patient Time attestation: Total time spent providing and/or coordinating discharge services: Time spent: Greater than 30 minutes Discharge Plan Discharge Anticipated Discharge Date/Time: 12/03/21 11:00 Patient Disposition: Home, Self-Care Discharge Diagnosis: Brief Psychotic Disorder Referrals: Jade Taylor (therapist) [Other] - 12/13/21 9:00 am (Telehealth appointment (zoom)) Jade Taylor (therapist) [Other] - 12/31/21 11:00 am (Telehealth appointment) Dr. Aguilar (psychiatrist) [Other] - 12/10/21 10:30 am (In office appointment - if you are unable to go in person, call ahead and change to telehealth However, provider would prefer you come in person. ) Vicki Galan APRN [Primary Care Provider] - 12/11/21 11:30 am () Discharge Medications: New trazodone 50 mg Tablet 50 mg PO BEDTIME 30 Days Qty: 30 0RF melatonin 3 mg Tablet 6 mg PO BEDTIME PRN (Reason: Insomnia) Qty: 0 0RF olanzapine 2.5 mg Tablet 2.5 mg PO BEDTIME 30 Days Qty: 30 0RF levothyroxine [Synthroid] 100 mcg Tablet 100 mcg PO DAILY@0600 Qty: 0 0RF bupropion HCl 300 mg Tablet Extended Release 24 Hr 300 mg PO DAILY 30 Days Qty: 30 0RF Discharge Orders: Discharge Order (Routine); Ordered 12/03/21 Ordered By: Stanislaw Merrill Diet: Advance to usual diet Activity on Discharge: As tolerated Stand Alone Forms: Patient Portal Discharge page, Community Support Care Plan Goals: remain safe and stable in the outpatient treatment setting Health Concerns: hypothyroidism Plan of Treatment: take medications as prescribed, attend appointments as scheduled Assessment: not at imminent risk of harm to self or others Discharge Date/Time: 12/03/21 11:09
== END 2021-12-03 11:09 | disposition home or self-care (01) | DRG 751 ==
PROVIDERS: Admitting Provider Psychiatry & Neurology Psychiatry; PCP Nurse Practitioner; Visit Provider Psychiatry & Neurology Psychiatry
DX: F23 Brief psychotic disorder (principal); E03.9 Hypothyroidism, unspecified; Z88.0 Allergy status to penicillin; Z79.890 Hormone replacement therapy; Z79.899 Other long term (current) drug therapy
CPT/HCPCS: 36415; 80053; 80061; 80076; 82607; 82746; 83036; 90686